=== PATIENT | male | born 2005 | race Caucasian/White ===

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

== ENCOUNTER 2023-01-01 17:56 | Emergency (ER) | payer OTHER | END 2023-01-01 18:34 | disposition home or self-care (01) | LOC: MW.ED 17:56 | DX: T65.891A Toxic effect of other specified substances, accidental (unintentional), initial encounter (principal); T23.562A Corrosion of first degree of back of left hand, initial encounter; T23.561A Corrosion of first degree of back of right hand, initial encounter; Z88.4 Allergy status to anesthetic agent; Z88.8 Allergy status to other drugs, medicaments and biological substances; X12.XXXA Contact with other hot fluids, initial encounter; Y93.E8 Activity, other personal hygiene; Y99.0 Civilian activity done for income or pay | CPT/HCPCS: 99283 ==

== ENCOUNTER 2024-03-05 14:13 | Emergency (ER) | payer SELFPAY ==
[2024-03-05] MEDS: Lidocaine 1% 5 ML VIAL INJECT ONE (15:10)
== END 2024-03-05 16:04 | disposition home or self-care (01) ==
LOC: MW.ED 14:13
DX: L60.0 Ingrowing nail (principal)
CPT/HCPCS: 11750; 99283; 99283-25; J3490